=== PATIENT | male | born 1985 | race Caucasian/White ===

== ENCOUNTER 2018-02-22 14:40 | Emergency (ER) | payer MEDICAID, SELFPAY ==
[2018-02-22 14:41] VITALS: BP 148/111; PULSE 111; RESP 18; TEMP 37.2; O2SAT 97; BMI 23.7
--- NOTE | 2018-02-22 15:07 | RAD_ITS ---
STUDY: X-RAY - LEFT FOOT CLINICAL: Male, 32 years old. Left foot pain. TECHNIQUE: 3 view(s) of the foot. COMPARISON: Comparison is made with prior study dated May 07, 2017. FINDINGS: Normal talus, calcaneus, and tarsal bones. Normal visualized subtalar, talonavicular, calcaneocuboid, tarsal and tarsometatarsal articulations. Normal metatarsi. Normal metatarsophalangeal joint of the great toe. Normal tibial and fibular sesamoid bones. Normal interphalangeal joint of the great toe. Normal phalanges of the great toe. Normal second through fifth metatarsophalangeal joints. Normal interphalangeal joints and phalanges of the lesser toes. The soft tissue structures are unremarkable. RAD/Foot min 3 Views IMPRESSION: Normal x-ray examination of the foot. Electronically Signed: Alonso Leung MD at 15:40 EDT Tel [phone], Service support ,
--- NOTE | 2018-02-22 15:08 | ED.VISSUMM ---
- ER Visit Summary Date of Service: 02/22/18 Chief Complaint: Left ankle injury History of Present Illness: The patient is a 32 M presenting with left ankle injury. Patient states he tripped over a curb approximately an hour ago. He then began having pain in his left ankle. He has swelling to the area. He states he had a previous fracture of his left ankle and it was never treated because he did not follow up. He has intermittent pain in this area. Denies other injury. Denies other complaints. Physical Examination: Vitals are stable. Patient is afebrile. Alert no acute distress. HEENT exam is unremarkable. Lungs are clear and equal bilaterally. Heart is regular rate and rhythm. Extremities left lateral ankle tenderness and swelling. Normal pulse. Skin is warm and dry. No focal neurologic deficit. Remainder of exam is unremarkable. Emergency Department Course and Treatment: Ice pack was applied. Left foot x-ray is normal. Left ankle x-ray shows soft tissue swelling. Patient is written a prescription for Naprosyn. He is ordered an Aircast and crutches. He eloped from the emergency department prior to receiving discharge instructions. Disposition: Elopement Impression: Left ankle sprain This note was generated with [employer] dictation software. It may contain incorrect words, spelling, and punctuation that were not noted in review of the chart prior to signing ED Disposition - Plan for ED Patient: Disposition: Home or Assisted Living Chief Complaint: Lower Extremity Injury Instructions: ED Sprain Ankle W X Ray Prescriptions: Naproxen [Naprosyn] 500 mg PO BID PRN #20 tablet Referrals: Iban Velazco MD [STAFF PHYSICIAN] - Care Physician,No Primary [Primary Care Provider] -
--- NOTE | 2018-02-22 15:10 | RAD_ITS ---
STUDY: X-RAY - LEFT ANKLE REASON FOR EXAM: Male, 32 years old. Pain. TECHNIQUE: 3 view(s) of the ankle. COMPARISON: Comparison is made with prior examination dated May 07, 2017. FINDINGS: Normal visualized distal tibia and fibula. Normal medial and lateral malleoli. Normal tibiotalar articulation and ankle mortise. Normal visualized talus and calcaneus. Healed fracture of the lateral aspect of the talus. The visualized subtalar, talonavicular, calcaneocuboid and tarsal articulations are normal. Diffuse soft tissue swelling. RAD/Ankle min 3 Views IMPRESSION: Diffuse soft tissue swelling. Electronically Signed: Alonso Leung MD at 15:38 EDT Tel [phone], Service support ,
--- NOTE | 2018-02-22 15:45 | ED.DEP ---
ED Disposition - Plan for ED Patient: Chief Complaint: Lower Extremity Injury Instructions: ED Sprain Ankle W X Ray Prescriptions: Naproxen [Naprosyn] 500 mg PO BID PRN #20 tablet Referrals: Care Physician,No Primary [Primary Care Provider] - Iban Velazco MD [STAFF PHYSICIAN] -
== END 2018-02-22 16:01 | disposition home or self-care (01) ==
LOC: ED 15:30
PROVIDERS: Emergency Provider Emergency Medicine
DX: S93.402A Sprain of unspecified ligament of left ankle, initial encounter (principal); W18.43XA Slipping, tripping and stumbling without falling due to stepping from one level to another, initial encounter; Y93.9 Activity, unspecified; Y92.9 Unspecified place or not applicable; Z72.0 Tobacco use
CPT/HCPCS: 73610; 73630; 99282

== ENCOUNTER 2021-12-30 14:26 | Outpatient (CLI) | payer MEDICAID, SELFPAY ==
[2021-12-30 15:59] LABS: Absolute Lymphocyte Count 2.52 X10^3/uL (0.83-4.51); Absolute Neutrophil Count 4.5 X10^3/uL (2.0-7.7); Basophil# 0.07 X10^3/uL; Basophil% 0.9 % (0-1); Eosinophil# 0.46 X10^3/uL; Eosinophils% 5.6 % (0-5); Hematocrit 47.4 % (40-54); Hemoglobin 15.8 g/dL (13.0-16.5); Lymphocyte # 2.52 X10^3/ul (0.83-4.51); Lymphocyte % 30.9 % (19-41); Mean Corp Hgb Conc 33.3 g/dL (32-36); Mean Corpuscular Hgb 31.2 pg (27.0-32.0); Mean Corpuscular Volume 93.7 fL (80-94); Mean Platelet Vol. 10.1 fl (6.2-12.0); Monocyte# 0.57 X10^3/uL; NRBC Flagged by Analyzer 0 % (0-5); Neutrophil # 4.51 X10^3/uL (2.7-7.7); Neutrophil % 55.4 % (47-70); Platelet Count 279 K/mm3 (150-450); RBC Distribution Width CV 13.2 % (11.6-14.6); RBC Distribution Width SD 45.1 fl (35.1-43.9); Red Blood Count 5.06 M/mm3 (4.6-6.2); White Blood Count 8.2 K/mm3 (4.4-11.0)
[2021-12-30 16:50] LABS: ALB/GLOB Ratio 1.1 RATIO (0.9-2.4); AST(SGOT) 15 U/L (15-37); Alanine Aminotransfer ALT/SGPT 26 U/L (16-61); Albumin, Serum 3.8 g/dL (3.2-5.0); Alkaline Phosphatase 106 U/L (45-117); Anion Gap 7 (5-15); BUN 9 mg/dL (7-18); BUN/Creat Ratio 13.6 RATIO (10-20); Calcium,Total 8.8 mg/dL (8.5-10.1); Chloride 106 mmol/L (98-107); Creatinine, Serum 0.66 mg/dL (0.70-1.30); EST Glomerular Filtration Rate 146 mL/min (>60); Est Glom Filt Rate - Afr Amer 176 mL/min (>60); Globulin 3.6 g/dL (2.2-4.2); Glucose 109 mg/dL (74-106); Protein, Total 7.4 g/dL (6.4-8.2); Sodium Level 138 mmol/L (136-145); Thyroid Stim Hormone (TSH) 1.38 uIU/mL (0.358-3.74)
[2021-12-31 09:14] LABS: Hepatitis B Surface Antibody Non-Reactive; Hepatitis B Surface Antigen Non-Reactive (Nonreactive); Hepatitis C Antibody Non-Reactive (Nonreactive)
== END 2021-12-30 23:59 | disposition home or self-care (01) ==
PROVIDERS: Visit Provider Registered Nurse
DX: F11.20 Opioid dependence, uncomplicated (principal); F15.20 Other stimulant dependence, uncomplicated
CPT/HCPCS: 36415; 80053; 84439; 84443; 85025; 86706; 86803; 87340

== ENCOUNTER 2023-08-05 14:40 | Emergency (ER) | payer MEDICAID, SELFPAY ==
[2023-08-05 14:41] VITALS: BP 176/108; PULSE 123; RESP 18; TEMP 35.7; O2SAT 100
--- NOTE | 2023-08-05 15:04 | EX.ED.DYSGE1 ---
HPI History of Present Illness Chief Complaint: Anxiety Informant: patient Narrative Narrative: Patient is a 37-year-old male with history of polysubstance abuse presenting for concern of opioid dependence. Patient states he was released from nursing home yesterday. He did use speed yesterday. Notes while in nursing home he was taking contraband Suboxone. He is called [facility] to set up for an IOP however they cannot get him in until Thursday. Patient states he just really wants to get high and is worried that if he does not get on Suboxone he will start using again and then either overdose or become addicted again. He states he does not really know what he wants from us but he is just looking for help. He is [facility] at the [facility]. Patient states he has not used any fentanyl, heroin or other opioid products in some time. He does not feel like he is withdrawing from anything. No other complaints or concerns at this time. Denies any HI or SI. PFSH [facility] Medical History (Updated 08/05/23 @ 15:[address] Becky Yee, ) Cyst near tailbone Hernia Substance abuse Home Medications NK 08/05/23 [History Last Taken Unknown] hydroxyzine HCl 25 mg tablet 25 mg PO TID PRN anxiety or withdrawal symptoms #20 tabs 08/05/23 [Rx Last Taken Unknown] naltrexone 50 mg tablet 50 mg PO DAILY #7 tabs 08/05/23 [Rx Last Taken Unknown] Allergy/AdvReac Type Severity Reaction Status Date / Time No Known Allergies Allergy Verified 08/05/23 14:40 Family History (Updated 08/05/23 @ 15:13 by Dloly Ivory) Mother COPD (chronic obstructive pulmonary disease) Surgical History (Updated 08/05/23 @ 15:13 by Dolly Ivory) History of dental surgery Social History (Updated 08/05/23 @ 15:13 by Dolly Ivory) housing: homeless Smoking Status: Current every day smoker tobacco type: cigarettes EXAM Physical Exam Const Vital Signs: 08/05/23 14:41 Temperature 96.2 F L Temperature Source Temporal Pulse Rate 123 H Respiratory Rate 18 Blood Pressure 176/108 H Blood Pressure Mean 130 Pulse Ox 100 Oxygen Delivery Method Room Air MDM MDM MDM Narrative Medical decision making narrative: Is evaluated for concern of opioid dependency/relapse. He does not clinically appear intoxicated. He has been using some clinical contraband Suboxone in nursing home. His last dose he thinks was 36 hours ago. He states he is not having any withdrawal symptoms. He is looking for a stopgap as he is following up with outpatient addiction medicine later this week. Patient vital signs are significant for hypertension and tachycardia however he is asymptomatic. I did discuss the case with Dr. Arango, who recommends naltrexone 50 mg daily. She states that if he is used within the last 3 days it could put him into withdrawal. Patient is counseled on this. He is also given a dose of hydroxyzine. Will be given a prescription for naltrexone as well as hydroxyzine. Is encouraged to return the emergency room if he needs any mental health supports (currently denies needing any) or if he does start using again and is looking for detox. Patient discharged in stable condition. Discharge Plan Triage Chief Complaint: Anxiety ED Provider: Becky Yee Dx/Rx/DC Orders Clinical Impression: History of opioid abuse Instructions: ED Drug Abuse, ED Opiate Abuse Prescriptions: New naltrexone 50 mg tablet 50 mg PO DAILY Qty: 7 0RF hydroxyzine HCl 25 mg tablet 25 mg PO TID PRN (Reason: anxiety or withdrawal symptoms ) Qty: 20 0RF No Action NK Primary Care Provider: Care Physician,No Primary Referrals: Care Physician,No Primary [Primary Care Provider] - [facility] [Non-Staff] - As Needed Activity Restrictions/Additional Instructions: Please return to the ER if you need further support. You have been prescribed oral naltrexone which completely blocks in the opioids. If you have opioids in your system however I will put you into full withdrawal. It is best to wait 3 days before using it. Disposition Disposition: Home, Self Care
[2023-08-05 15:11] VITALS: BMI 24.4
[2023-08-05] MEDS: hydrOXYzine PAM 25 MG Capsule 50 MG PO (15:52)
[2023-08-05 15:55] VITALS: BP 126/77; PULSE 62; RESP 15; O2SAT 98
== END 2023-08-05 15:59 | disposition home or self-care (01) ==
PROVIDERS: Emergency Provider Emergency Medicine; Visit Provider Emergency Medicine
DX: Z87.898 Personal history of other specified conditions (principal); F41.9 Anxiety disorder, unspecified; F17.210 Nicotine dependence, cigarettes, uncomplicated; Z59.00 Homelessness unspecified
CPT/HCPCS: 99283

== ENCOUNTER 2024-05-07 10:32 | Emergency (ER) | payer MEDICAID, SELFPAY ==
[2024-05-07 10:33] VITALS: BP 141/85; PULSE 100; PULSE 104; RESP 16; TEMP 36.1; O2SAT 10; O2SAT 98; BMI 32.5
--- NOTE | 2024-05-07 10:51 | EDS_ITS ---
HPI History of Present Illness Chief Complaint: Cellulitis Detail of Chief Complaint: Left lower quadrant abdominal cellulitis. Informant: patient Onset/Context/Timing Onset: Days Context: Gradual Onset Timing: Continuous Current Severity: Moderate Maximum Severity: Moderate Narrative Narrative: 38-year-old male past medical history of substance abuse he gets subcu injections in his lower abdomen monthly to help him with drug rehabilitation. The most recent injection left lower quadrant of his abdomen became infected and cellulitic. He followed up with them and they started him on antibiotic he thinks his Keflex is not sure. The redness has gotten worse and now is draining pus. He denies any fever or chills. He denies being diabetic. Prior similar symptoms: No Recent Illness/Hospitalization: No PFSH PFSH Medical History Cyst near tailbone Hernia Substance abuse Home Medications ?Medication ?Instructions ?Recorded ?Last Taken ?Type buprenorphine 100 mg/0.5 mL 100 mg subcut QMONTH 05/07/24 Unknown History solution,exten.rel.subcutaneous syringe (Sublocade) cephalexin 500 mg capsule 500 mg PO Q6 #40 CAPSULES 05/07/24 Unknown Rx cephalexin 500 mg tablet 500 mg PO 4X/DAY 05/07/24 05/07/24 History sulfamethoxazole 800 1 tab PO BID 10 days #20 tabs 05/07/24 Unknown Rx mg-trimethoprim 160 mg tablet (Bactrim DS) Allergy/AdvReac Type Severity Reaction Status Date / Time No Known Allergies Allergy Verified 05/07/24 10:35 Family History Mother COPD (chronic obstructive pulmonary disease) Surgical History History of dental surgery Social History housing: homeless Smoking Status: Current every day smoker tobacco type: cigarettes ROS ROS ED ROS Narrative Redness left lower quadrant of his abdomen. No fever or chills. No vomiting or diarrhea. Review of Systems ROS Unobtainable: Denies due to encephalopathy Constitutional Constitutional ED: Denies chills or fever(s) Eyes Eyes: Denies blurry vision ENT ENT ED: Denies ear pain Cardiovascular Cardiovascular: Denies chest pain Respiratory/Chest Respiratory/Chest: Denies cough or dyspnea Gastrointestinal Gastrointestinal: Denies abdominal pain Genitourinary Genitourinary ED: Denies dysuria or hematuria Musculoskeletal Musculoskeletal: Denies arthralgias or back pain Integumentary Reports abscess and rash; Denies Abrasions Neurologic Neurologic: Denies headache(s) Psychiatric Psychiatric: Denies anxiety Endocrine Endocrinology: Denies cold intolerance Hematologic/Lymphatic Hematologic/Lymphatic: Reports none Allergic/Immunologic Allergic/Immunologic ED: Denies mouth swelling, tongue swelling or urticaria EXAM Physical Exam Narrative Exam Narrative: Well-appearing 38-year-old male. Vital signs stable afebrile. H EENT exam unremarkable. Neck nontender. Lungs clear to auscultation bilaterally. Heart regular rhythm no murmur. Abdomen soft. Left lower quadrant of his abdomen is about 5 to 6 inch area circular that is red. The middle there is a small hole that is draining pus when pressed upon. Mildly tender. I suspect an abscess with surrounding cellulitis. There is no necrotic tissue. It is only localized in the left lower quadrant of his abdomen. Moving all 4 extremities. Neurologically is awake and alert no focal motor deficits. Const Vital Signs: 05/07/24 10:33 05/07/24 10:33 Temperature 97.0 F L Temperature Source Temporal Pulse Rate 104 H 100 Respiratory Rate 16 16 Blood Pressure 141/85 H 141/85 H Blood Pressure Mean 103 103 Pulse Ox 98 10 Oxygen Delivery Method Room Air Room Air Positive well nourished and well developed; Negative for cachectic, contractures or unkempt General Appearance ED: well developed and NAD; Negative for unkempt, cachectic, contractures, cyanotic, diaphoretic or pallor Nutritional Appearance: Negative for cachectic HEENT Reports moist mucous membranes Negative for trauma or tenderness Eyes PERRL and EOMs intact bilaterally General Eye ED: Negative for pale conjunctiva or scleral icterus Neck no lymphadenopathy, supple and no JVD General: Negative for tenderness Chest Wall inspection of chest normal and palpation of chest normal Resp normal respiratory effort and clear to auscultation bilaterally Cardio regular rate, regular rhythm, S1 normal heart sound, S2 normal heart sound and no murmurs Rate: Negative for bradycardia or tachycardic GI normal to inspection, nondistended, normoactive bowel sounds, non-tender, non- distended and no masses GI Narrative: Tender left lower quadrant. Cellulitis with abscess drains pus. Inspection: Negative for abdominal distention Auscultation: normoactive bowel sounds Palpation: soft and tender; Negative for guarding Back/Spine no CVA tenderness General Back: Negative for CVA tenderness Cervical Spine: Negative for cervical spine tenderness Thoracic Spine / Upper Back: Negative for thoracic spinal tenderness or paraspinal muscle tenderness Lumbar Spine / Lower Back: Negative for lumbar spinal tenderness Extremity normal to inspection General Extremety ED: Negative for edema or tenderness General Extremity: Negative for edema Neuro oriented x3 and CN's II-XII intact bilaterally Sensorium / Orientation: alert; Negative for orientation impaired, lethargic or stuporous Motor Exam: strength 5/5 throughout Psych mental status grossly normal Appearance: Negative for unkempt Attitude: No agitated Mood & Affect: Negative for depressed, anxious or tearful Skin No no rashes or lesions noted and No no wounds General Skin Exam: Negative for jaundice or pallor Lesions: lesion noted Rashes: rashes noted Wounds: wounds noted MDM MDM MDM Narrative Medical decision making narrative: 38-year-old male history of opiate abuse gets monthly injections in his lower abdomen. The most recent ones now infected with cellulitis and subcu abscess. We are in a prescription for Bactrim and Keflex for 10 days each and we will do an I&D on the lower abdominal cellulitic area because there is purulent discharge I suspect an abscess. Incision and drainage of left lower quadrant abdominal wall follow-up if not proving. Pull packing out 4 days. Patient tolerated well. Keflex 500 4 times daily for 10 days. Bactrim twice daily for 10 days. Tylenol Motrin for pain. Return if worse. Given a dose of both antibiotics here prior to discharge. History & Record Review Discussion w/independent historian: Patient Additional record(s) reviewed:: Prior outpatient record, Prior ED visit and Prior labs Lab Data Attestation: I reviewed the patient's lab results. Procedures Other Procedures Procedure(s): Abdominal wall cellulitis with subcu abscess. Cleaned with iodine . Locally next best lidocaine. Made about a 1 inch horizontal incision. Expressed about 1 cc to 2 cc of pus. Broke up any loculations with the probe in place about 4 inches of half-inch iodinated gauze. Patient instructed on wound care and gauze removal in 4 days. Discharge Plan Triage Chief Complaint: Cellulitis ED Provider: Lyle Hermosillo Dx/Rx/DC Orders Clinical Impression: Abdominal wall abscess, Encounter for incision and drainage procedure, Cellulitis Instructions: ED Abscess Incision And Drainage Prescriptions: New cephalexin 500 mg capsule 500 mg PO Q6 Qty: 40 0RF sulfamethoxazole-trimethoprim [Bactrim DS] 800-160 mg tablet 1 tab PO BID 10 Days Qty: 20 0RF No Action cephalexin 500 mg tablet 500 mg PO 4X/DAY Sublocade 100 mg/0.5 mL solution, extended rel syringe 100 mg subcut QMONTH Primary Care Provider: Care Physician,No Primary Referrals: Clotilde Haddad MD [Med Staff - Manager Test] - 3-5 Days if not improving Care Physician,No Primary [Primary Care Provider] - Activity Restrictions/Additional Instructions: Stop the current antibiotic you are on. Take the antibiotics that are prescribed. The Keflex or cephalexin is 1 pill 4 times a day. The Bactrim is 1 pill twice a day. Both for 10 days. Motrin and Tylenol for pain. Pull the packing out in 4 days. That is to keep it open and allowed to continue to drain. Return if this is looking a lot worse or you are feeling worse. Follow-up local primary care physician as needed. Print Language: Tongan Disposition Disposition: Home, Self Care
[2024-05-07] MEDS: Lidocaine 1% (20 ml mdv) 20 ML Vial 10 ML INFILT (11:30)
[2024-05-07] MEDS: Cephalexin 250 MG Capsule 500 MG PO (12:01)
[2024-05-07] MEDS: Smz/Tmp Ds Tablet 1 TABLET PO (12:01)
[2024-05-07 12:06] VITALS: BP 138/96; PULSE 97; RESP 16; TEMP 36.4; O2SAT 97
== END 2024-05-07 12:06 | disposition home or self-care (01) ==
PROVIDERS: Emergency Provider Emergency Medicine; Visit Provider Emergency Medicine
DX: L03.311 Cellulitis of abdominal wall (principal); F17.210 Nicotine dependence, cigarettes, uncomplicated; Z59.00 Homelessness unspecified; L02.211 Cutaneous abscess of abdominal wall
CPT/HCPCS: 10060; 99284